=== PATIENT | male | born 1995 | race Caucasian/White ===

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

== ENCOUNTER 2017-04-09 20:33 | Emergency (ER) | payer MEDICAID ==
[2017-04-09 20:51] VITALS: BP 118/70
--- NOTE | 2017-04-09 23:39 | ER Document Report ---
HPI - HPI Patient complains to provider of: cough, congestion, sore throat Onset: Other - few days Pain Level: 4 Context: 21 yo female c/i sore throat, runny nose, congstion, cough for a few days. No fever or chills. Associated Symptoms: None Exacerbated by: Denies Relieved by: Denies - ROS ROS below otherwise negative: Yes Systems Reviewed and Negative: Yes All other systems reviewed and negative - EENT EENT: REPORTS: Sore Throat - RESPIRATORY Respiratory: REPORTS: Coughing - REPRODUCTIVE Reproductive: DENIES: : Past Medical History - General Information source: Patient - Social History Smoking Status: Current Every Day Smoker Chew tobacco use (# tins/day): No Frequency of alcohol use: None Drug Abuse: None Lives with: Family Family History: Arthritis, CAD, COPD, CVA, DM, Hyperlipidemia, Hypertension, Malignancy, Thyroid Disfunction, Other - Gallbladder Disease Patient has suicidal ideation: No Patient has homicidal ideation: No Pulmonary Medical History: Reports: Hx Asthma Renal/ Medical History: Denies: Hx Peritoneal Dialysis Psychiatric Medical History: Reports: Hx Attention Deficit Hyperactivity Disorder, Hx Bipolar Disorder Past Surgical History: Reports: Hx Genitourinary Surgery - circumcsion at 10 years old, Hx Tonsillectomy - Immunizations Immunizations up to date: Yes Hx Diphtheria, Pertussis, Tetanus Vaccination: Yes Vertical Provider Document - CONSTITUTIONAL Agree With Documented VS: Yes Exam Limitations: No Limitations General Appearance: No Apparent Distress - INFECTION CONTROL TRAVEL OUTSIDE OF THE [place] IN LAST 30 DAYS: No - HEENT HEENT: Pharyngeal Erythema. negative: Conjuctival Injection, Tympanic Membrane Red - NECK Neck: Supple. negative: Lymphadenopathy-Left, Lymphadenopathy-Right - RESPIRATORY Respiratory: Breath Sounds Normal, No Respiratory Distress O2 Sat by Pulse Oximetry: 97 - CARDIOVASCULAR Cardiovascular: Regular Rate, Regular Rhythm - GI/ABDOMEN Gastrointestinal: Abdomen Soft, Abdomen Non-Tender - NEURO Level of Consciousness: Awake, Alert, Appropriate - DERM Integumentary: Warm, Dry, No Rash Course - Vital Signs Vital signs: Temp Pulse Resp BP Pulse Ox 98.4 F 74 18 118/70 97 04/09/17 20:51 04/09/17 20:51 04/09/17 20:51 04/09/17 20:51 04/09/17 20:51 Discharge - Discharge Clinical Impression: Upper respiratory infection Qualifiers: URI type: unspecified viral URI Qualified Code(s): J06.9 - Acute upper respiratory infection, unspecified Condition: Good Disposition: HOME, SELF-CARE Instructions: Acetaminophen, Inhaled Bronchodilators ([facility]), Stop Smoking ([facility]) , Upper Respiratory Illness ([facility]) Additional Instructions: plenty of fluids quit smoking do not get around cigarette smoke use the inhaler 2 puffs every 3 hours for the cough to er if symptoms worsen, chest pain, shortness of breath, fever, chills. bodyaches Referrals: JI BUSH DO [Primary Care Provider] - Follow up as needed
[2017-04-09] MEDS ORDERED: ALBUTEROL SULFATE HFA (90 MCG/PUFF) 200 PUFF/8.5 GM MDI IH ONE (23:49)
== END 2017-04-10 00:06 | disposition home or self-care (01) ==
LOC: ER 20:33
DX: J06.9 Acute upper respiratory infection, unspecified (principal); F17.200 Nicotine dependence, unspecified, uncomplicated
CPT/HCPCS: 99283; J3490

== ENCOUNTER 2017-04-19 21:57 | Emergency (ER) | payer MEDICAID ==
--- NOTE | 2017-04-20 01:50 | ER Document Report ---
HPI - HPI Pain Level: 5 Notes: Patient is a 21-year-old male no significant past medical history presents ED complaining of nasal congestion/discharge, dry nonproductive cough, occasional dizziness, decreased appetite 13 days. Patient states that he was evaluated 10 days ago and was diagnosed with a viral infection. He did feel as though he was getting better, but symptoms began to worsen. Patient states that over the next several days his symptoms began to worsen. He has been using over-the- counter meds with minimal relief. Patient states that he still able to tolerate p.o. intake. He is urinating normally and having normal bowel movements. Denies any current headache, fever, neck pain, sore throat, chest pain, palpitations, syncope, shortness of breath, wheeze, dyspnea, abdominal pain, nausea/vomiting/diarrhea, urinary retention, dysuria, hematuria, or rash. Pt requests work note as well. - ROS Notes: REVIEW OF SYSTEMS: CONSTITUTIONAL : see hpi. EENT: see hpi CARDIOVASCULAR: Denies chest pain. Denies palpitations or racing or irregular heart beat. Denies ankle edema. RESPIRATORY: see hpi. Denies shortness of breath, difficulty breathing, or wheezing. GASTROINTESTINAL: Denies abdominal pain or distention. Denies nausea, vomiting , or diarrhea. Denies blood in vomitus, stools, or per rectum. Denies black, tarry stools. Denies constipation. GENITOURINARY: Denies difficulty urinating, painful urination, burning, frequency, blood in urine, or discharge. MUSCULOSKELETAL: Denies back or neck pain or stiffness. Denies joint pain or swelling. SKIN: Denies rash, lesions or sores. NEUROLOGICAL: Denies confusion or altered mental status. Denies passing out or loss of consciousness. Denies headache. Denies weakness or paralysis or loss of use of either side. Denies problems with gait or speech. Denies sensory loss, numbness, or tingling. Denies seizures. ALL OTHER SYSTEMS REVIEWED AND NEGATIVE. Dictation was performed using [employer] recognition software - CONSTITUTIONAL Constitutional: DENIES: Fever, Chills - EENT EENT: REPORTS: Sore Throat. DENIES: Ear Pain, Eye problems - NEURO Neurology: DENIES: Headache, Weakness, Vision blurred, Dizzinesss / Vertigo - CARDIOVASCULAR Cardiovascular: DENIES: Chest pain - RESPIRATORY Respiratory: REPORTS: Coughing - productive. DENIES: Trouble Breathing - GASTROINTESTINAL Gastrointestinal: DENIES: Abdominal Pain, Black / Bloody Stools - URINARY Urinary: DENIES: Dysuria, Urgency, Frequency - REPRODUCTIVE Reproductive: DENIES: :, Postmenopausal, Abnormal bleeding / discharge - MUSCULOSKELETAL Musculoskeletal: DENIES: Extremity pain Past Medical History - Social History Smoking Status: Current Every Day Smoker Chew tobacco use (# tins/day): No Frequency of alcohol use: None Drug Abuse: None Family History: Arthritis, CAD, COPD, CVA, DM, Hyperlipidemia, Hypertension, Malignancy, Thyroid Disfunction, Other - Gallbladder Disease Patient has suicidal ideation: No Patient has homicidal ideation: No Pulmonary Medical History: Reports: Hx Asthma Renal/ Medical History: Denies: Hx Peritoneal Dialysis Psychiatric Medical History: Reports: Hx Attention Deficit Hyperactivity Disorder, Hx Bipolar Disorder Past Surgical History: Reports: Hx Genitourinary Surgery - circumcsion at 10 years old, Hx Tonsillectomy - Immunizations Immunizations up to date: Yes Hx Diphtheria, Pertussis, Tetanus Vaccination: Yes Vertical Provider Document - CONSTITUTIONAL Agree With Documented VS: Yes Notes: PHYSICAL EXAMINATION: GENERAL: Well-appearing, well-nourished and in no acute distress. A&Ox4 HEAD: Atraumatic, normocephalic. EYES: Pupils equal round and reactive to light, extraocular movements intact, sclera anicteric, conjunctiva are normal. ENT: EAC clear b/l. TM's intact b/l without erythema, fluid, or perforation. Nares patent and without discharge. oropharynx clear without exudates. Tonsils absent. Moist mucous membranes. No sinus tenderness. No airway compromise. NECK: Normal range of motion, supple without lymphadenopathy. No rigidity/ meningismus. LUNGS: Breath sounds clear to auscultation bilaterally and equal. No wheezes rales or rhonchi. HEART: Regular rate and rhythm without murmurs, rubs, gallops. Extremities: No cyanosis, clubbing, or edema b/l. Peripheral pulses 2+. Capillary refill less than 3 seconds. NEUROLOGICAL: Cranial nerves grossly intact. Normal speech, normal gait. Normal sensory, motor exams PSYCH: Normal mood, normal affect. SKIN: Warm, Dry, normal turgor, no rashes or lesions noted. - INFECTION CONTROL TRAVEL OUTSIDE OF THE [place] IN LAST 30 DAYS: No - RESPIRATORY O2 Sat by Pulse Oximetry: 97 Course - Re-evaluation Re-evalutation: 04/20/17 01:49 Patient is an afebrile, well-hydrated, 21-year-old male who presents the ED with acute URI, suspect viral at this time. Vitals are stable. PE is otherwise unremarkable. No other imaging or lab work warranted at this time based on H&P. Low suspicion for any ACS, PE, pneumothorax, pericarditis, dissection, respiratory compromise, severe dehydration, sepsis, meningitis, or other systemic emergent condition at this time. Patient is aware that his condition can change from initial presentation and he needs to monitor symptoms closely and seek medical attention for any acute changes. I will send him home with a prescription for a pocket prescription of Zithromax that he may begin if ongoing symptoms or worsening symptoms 2-3 days. Recommend conservative measures for symptoms. Recheck with your PCM in 3-5 days. Return to the ED with any worsening/concerning symptoms otherwise as reviewed in discharge. Patient is in agreement. - Vital Signs Vital signs: Temp Pulse Resp BP Pulse Ox 99.1 F 84 16 127/75 H 97 04/19/17 22:02 04/19/17 22:02 04/19/17 22:02 04/19/17 22:02 04/19/17 22:02 Discharge - Discharge Clinical Impression: Acute URI Condition: Stable Disposition: HOME, SELF-CARE Instructions: Upper Respiratory Illness ([facility]) Additional Instructions: Maintain adequate fluid intake Take meds as directed--may begin zithromax with ongoing/worsening symptoms x2-3 days tylenol/ibuprofen as needed over the counter cold medication as needed for symptoms Humidified air may help F/u: with your PCM in 3-5 days for a recheck Return to the ED with any fever, worsening pain, chest pain, palpitations, syncope, worsening HERNANDEZ, neck pain/stiffness, shortness of breath, wheezing, drooling, trouble swallowing/breathing, abdominal pain, n/v/d, rash, or worsening/concerning symptoms otherwise. Prescriptions: Azithromycin [Zithromax 250 mg Tablet] 250 mg PO ASDIR PRN #6 tablet PRN Reason: Forms: Elevated Blood Pressure, Smoking Cessation Education, Return to Work Referrals: [facility] [Provider Group] - Follow up as needed [facility] [Provider Group] - Follow up as needed
[2017-04-20 02:35] VITALS: BP 127/75
== END 2017-04-20 02:33 | disposition home or self-care (01) ==
LOC: ER 21:57
DX: J06.9 Acute upper respiratory infection, unspecified (principal); R09.81 Nasal congestion; R42 Dizziness and giddiness; F17.200 Nicotine dependence, unspecified, uncomplicated
CPT/HCPCS: 99283

== ENCOUNTER 2017-04-20 18:46 | Emergency (ER) | payer MEDICAID ==
[2017-04-20] MEDS ORDERED: ACETAMINOPHEN 325 MG TABLET PO ONE (19:14)
--- NOTE | 2017-04-20 19:33 | ER Document Report ---
ED Medical Screen (RME) - General Chief Complaint: Pain All Over Stated Complaint: FEVERS/COUGH Time Seen by Provider: 04/20/17 19:29 Notes: seen last night for same. Given antibiotics, did not start them yet. Pt has been sick for two weeks, symptoms worse today. States has been hospitalized as child when he had bronchitis due to asthma. 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 I have greeted and performed a rapid initial assessment of this patient. A comprehensive ED assessment and evaluation of the patient, analysis of test results and completion of the medical decision making process will be conducted by additional ED providers. TRAVEL OUTSIDE OF THE [place] IN LAST 30 DAYS: No - Related Data Allergies/Adverse Reactions: promethazine HCl [From Phenergan] Allergy (Verified 04/20/17 18:51) Past Medical History Pulmonary Medical History: Reports: Hx Asthma Renal/ Medical History: Denies: Hx Peritoneal Dialysis Psychiatric Medical History: Reports: Hx Attention Deficit Hyperactivity Disorder, Hx Bipolar Disorder Past Surgical History: Reports: Hx Genitourinary Surgery - circumcsion at 10 years old, Hx Tonsillectomy - Immunizations Immunizations up to date: Yes Hx Diphtheria, Pertussis, Tetanus Vaccination: Yes Physical Exam - Vital signs Vitals: Temp Pulse Resp BP Pulse Ox 102.9 F H 132 H 18 120/66 99 04/20/17 19:11 04/20/17 19:11 04/20/17 19:11 04/20/17 19:11 04/20/17 19:11 Course - Vital Signs Vital signs: Temp Pulse Resp BP Pulse Ox 102.9 F H 132 H 18 120/66 99 04/20/17 19:11 04/20/17 19:11 04/20/17 19:11 04/20/17 19:11 04/20/17 19:11
--- NOTE | 2017-04-20 19:53 | RADIOLOGY REPORT (SQ) ---
EXAM DESCRIPTION: CHEST PA/LAT COMPLETED DATE/TIME: 04/20/2017 7:39 pm REASON FOR STUDY: chest congestion/fever COMPARISON: None. NUMBER OF VIEWS: Two view. TECHNIQUE: Frontal and lateral radiographic images acquired of the chest. LIMITATIONS: None. FINDINGS: LUNGS: Clear. Normal inflation. Pulmonary vascularity normal. No radiopaque foreign bod y. HEART AND MEDIASTINUM: Normal size, no mass or congenital abnormality suggested. BONES: No fracture, lesion or congenital abnormality suggested. BOWEL GAS PATTERN: Nonobstructive. No suggestion of upper abdominal mass. HARDWARE: None in the chest. OTHER: No other significant finding. IMPRESSION: NORMAL TWO VIEW PEDIATRIC CHEST EXAMINATION. TECHNICAL DOCUMENTATION: JOB ID: [id number] [employer]- All Rights Reserved
[2017-04-20] MEDS ORDERED: NORMAL SALINE 1000 ML 1,000 ML IV ONE (21:51)
[2017-04-20 22:24] LABS: ABSOLUTE LYMPHOCYTES (AUTO) 1.2 10^3/uL (0.5-4.7); ABSOLUTE NEUT (AUTO) 15.8 10^3/uL (1.7-8.2); BASOPHILS % (AUTO) 0.1 % (0-2); EOSINOPHILS % (AUTO) 0.2 % (0-6); HEMATOCRIT 41.1 % (37.9-51.0); HEMOGLOBIN 14.3 g/dL (13.5-17.0); HGB HCT DIFFERENCE 1.8; LYMPHOCYTES % (AUTO) 6.5 % (13-45); MEAN CORPUSCULAR HEMOGLOBIN 29.1 pg (27.0-33.4); MEAN CORPUSCULAR HGB CONC 34.8 g/dL (32.0-36.0); MEAN CORPUSCULAR VOLUME 84 fl (80-97); MONOCYTES % (AUTO) 5.6 % (3-13); RED BLOOD COUNT 4.91 10^6/uL (4.35-5.55); RED CELL DISTRIBUTION WIDTH 12.8 % (11.5-14.0); SEGMENTED NEUTROPHILS % (AUTO) 87.6 % (42-78); WHITE BLOOD COUNT 18.1 10^3/uL (4.0-10.5)
[2017-04-20 22:27] LABS: APPEARANCE,URINE CLEAR; BILIRUBIN,URINE NEGATIVE (NEGATIVE); GLUCOSE, URINE NEGATIVE (NEGATIVE); KETONES,URINE NEGATIVE (NEGATIVE); LEUKOCYTE ESTERASE,URINE NEGATIVE (NEGATIVE); NITRITE,URINE NEGATIVE (NEGATIVE); PROTEIN,URINE NEGATIVE (NEGATIVE); URINE SPECIFIC GRAVITY 1.004; UROBILINOGEN,URINE NEGATIVE mg/dL (<2.0)
[2017-04-20 22:57] LABS: ALANINE AMINOTRANSFERASE 32 U/L (10-40); ALBUMIN 3.8 g/dL (3.7-5.6); ALKALINE PHOSPHATASE 86 U/L (65-260); ASPARTATE AMINO TRANSFERASE 20 U/L (10-45); BILIRUBIN,DIRECT 0.4 mg/dL (0.0-0.4); BILIRUBIN,TOTAL 0.7 mg/dL (0.2-1.3); BLOOD UREA NITROGEN 7 mg/dL (7-20); CALCIUM 9.5 mg/dL (8.4-10.2); CARBON DIOXIDE 25 mmol/L (22-30); CHLORIDE 104 mmol/L (98-107); CREATININE RESULT 0.78 mg/dL (0.52-1.25); GLUCOSE 120 mg/dL (75-110); POTASSIUM 3.5 mmol/L (3.6-5.0); TOTAL PROTEIN 6.3 g/dL (6.3-8.2)
[2017-04-20 23:04] LABS: ANION GAP 11 (5-19); SODIUM 139.8 mmol/L (137-145)
[2017-04-20] MEDS ORDERED: CEFTRIAXONE 1 GM/D5W RTU 1 GM/50 ML RTUPB IV ONE (23:29)
[2017-04-20] MEDS ORDERED: DEXAMETHASONE SOD PHOS INJ 10 MG/1 ML VIAL IV ONE (23:29)
[2017-04-21] MEDS ORDERED: ACETAMINOPHEN WITH CODEINE #3 TABLET PO ONE (00:05)
--- NOTE | 2017-04-21 00:20 | ER Document Report ---
ED General - General Chief Complaint: Pain All Over Stated Complaint: FEVERS/COUGH Time Seen by Provider: 04/20/17 19:29 Mode of Arrival: Ambulatory Information source: Patient, Friend Notes: Patient is a 21-year-old male comes back to the emergency room from a visit last night. Patient states he was here last night and was told he probably had bronchitis and was sent home. He was given an antibiotic but he did not get itfilled. Patient states that at home today he has been unable to keep any food and he is run temps up to 100 and 3.5I is try taking Tylenol and ibuprofen but the fever has not gotten any better. He is also complained about a continuous cough and drainage in his throat. Patient's vital signs on arrival here showed a temp of 102.9 with a heart rate 132 blood pressure 120/66 and respiratory rate 18 sat 99%. Patient denies any other medical problems. He does smoke a half pack cigarettes a day. TRAVEL OUTSIDE OF THE [place] IN LAST 30 DAYS: No - HPI Patient complains to provider of: Fever cough fatigue Onset: Other - 3 days Onset/Duration: Gradual, Worse Quality of pain: Achy Severity: Moderate Pain Level: 3 Associated symptoms: Body/muscle aches, Nonproductive cough, Fever, Nausea, Rhinnorhea, Sinus pain/drainage, Sore throat Exacerbated by: Denies Relieved by: Denies Similar symptoms previously: Yes Recently seen / treated by doctor: Yes - Related Data Allergies/Adverse Reactions: promethazine HCl [From Phenergan] Allergy (Verified 04/20/17 18:51) Past Medical History - General Information source: Patient, Friend - Social History Smoking Status: Current Every Day Smoker Cigarette use (# per day): Yes - Half a pack to pack a day Chew tobacco use (# tins/day): No Smoking Education Provided: Yes Frequency of alcohol use: None Drug Abuse: None Lives with: Family Family History: Arthritis, CAD, COPD, CVA, DM, Hyperlipidemia, Hypertension, Malignancy, Thyroid Disfunction, Other - Gallbladder Disease Patient has suicidal ideation: No Patient has homicidal ideation: No Pulmonary Medical History: Reports: Hx Asthma Renal/ Medical History: Denies: Hx Peritoneal Dialysis Psychiatric Medical History: Reports: Hx Attention Deficit Hyperactivity Disorder, Hx Bipolar Disorder Past Surgical History: Reports: Hx Genitourinary Surgery - circumcsion at 10 years old, Hx Tonsillectomy - Immunizations Immunizations up to date: Yes Hx Diphtheria, Pertussis, Tetanus Vaccination: Yes Review of Systems - Review of Systems Constitutional: No symptoms reported EENT: Nose congestion, Sinus pressure, Throat pain, Difficulty swallowing Cardiovascular: No symptoms reported Respiratory: See HPI, Cough, Short of breath Gastrointestinal: No symptoms reported Genitourinary: No symptoms reported Male Genitourinary: No symptoms reported Musculoskeletal: Muscle pain Skin: No symptoms reported Hematologic/Lymphatic: No symptoms reported Neurological/Psychological: No symptoms reported -: Yes All other systems reviewed and negative Physical Exam - Vital signs Vitals: Temp Pulse Resp BP Pulse Ox 102.9 F H 132 H 18 120/66 99 04/20/17 19:11 04/20/17 19:11 04/20/17 19:11 04/20/17 19:11 04/20/17 19:11 Interpretation: Tachycardic, Febrile - General General appearance: Other - Slightly ill-appearing - HEENT Head: Normocephalic, Atraumatic Conjunctiva: Normal Cornea: Normal Extraocular movements intact: Yes External canal: Normal Tympanic membrane: Bulging Nasal: Purulent discharge Mouth/Lips: Normal Mucous membranes: Normal, Moist Pharynx: Erythema, Other - Examination had an upper airway showed nasal mucosa to be very erythematous and edematous with rhinorrhea noted throughout. Bilateral nasal congestion is also noted. Examination of the frontal maxillary sinuses show tenderness to palpation percussion. Examination of the ears show external canals have a mild amount of cerumen but TMs are visible and there are no fluid levels noted although TMs are bulging bilaterally. Examination of the oropharynx shows moderate amount of edema throughout there are no tonsils visualized. There is moderate amount of drainage in the posterior pharynx. Neck: Anterior cervical chain, Lymphadenopathy - Respiratory Respiratory status: No respiratory distress Chest status: Nontender Breath sounds: Decreased air movement, Nonproductive cough. No: Normal, Productive cough, Rales, Rhonchi, Stridor, Wheezing, Other Chest palpation: Normal - Cardiovascular Rhythm: Tachycardia Murmur: No - Abdominal Inspection: Normal Distension: No distension Bowel sounds: Normal Tenderness: Nontender Organomegaly: No organomegaly - Neurological Neuro grossly intact: Yes Cognition: Normal Orientation: AAOx4 [place] Coma Scale Eye Opening: Spontaneous [place] Coma Scale Verbal: Oriented Maria Elena Coma Scale Motor: Obeys Commands Maria Elena Coma Scale Total: 15 Speech: Normal - Skin Skin Temperature: Warm Skin Moisture: Dry Skin Color: Normal, [place] Course - Vital Signs Vital signs: Temp Pulse Resp BP Pulse Ox 97.7 F 91 H 18 117/60 98 04/21/17 00:47 04/21/17 00:47 04/21/17 00:47 04/21/17 00:47 04/21/17 00:47 - Laboratory Result Diagrams: 04/20/17 22:10 04/20/17 22:10 Laboratory results interpreted by me: 04/20/17 04/20/17 22:10 22:10 WBC 18.1 H Seg Neutrophils % 87.6 H Lymphocytes % 6.5 L Absolute Neutrophils 15.8 H Potassium 3.5 L Glucose 120 H - Diagnostic Test Radiology reviewed: Reports reviewed - Plain film of the chest were negative for any acute findings. - Transfer of Care Notes: 04/21/17 00:24 Patient's course of stay has actually showed major improvement over the course of time. He is received a liter of fluids he is gotten to eat and his kept food down as well as other dietary josey. Eyes actually got better color in his face. His workup has been pretty much benign with the exception we have an 18,000 white count that I cannot explain and a fever that was up to 102.9. Since patient is been here on ibuprofen Tylenol and fluids he has had a more normalized vital signs. I have since I know of the patient's course of action here I have informed him that if he does not get a lot better in 24 hours or he has a relapse to come back between 2:00 in the afternoon 2:00 in the morning tomorrow as I know his case and ask for me. 04/21/17 00:59 Discharge - Discharge Clinical Impression: Fever, unknown origin, Bacterial upper respiratory infection Condition: Good Disposition: HOME, SELF-CARE Instructions: Acetaminophen, Upper Respiratory Illness ([facility]) Additional Instructions: Home and rest. Medication as prescribed. As we discussed return to ER tomorrow after 2 at the afternoon if you are not 100% better or improving. 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 If you are improving then continue with the medications and follow-up with your primary care provider. Return sooner if you have any concerns or problems. Continue with hydration primarily and decrease smoking as much as possible. Prescriptions: Acetaminophen with Codeine [Tylenol #3 Tablet] 1 each PO Q4HP PRN #20 tablet PRN Reason: Azithromycin [Zithromax Tri-Woody] 500 mg PO DAILY #1 pkg Prednisone [Sterapred Ds] 10 mg PO ASDIR PRN #1 tab.ds.pk PRN Reason: Prednisone 10 mg PO ASDIR PRN #1 tab.ds.pk PRN Reason: Forms: Return to Work, Smoking Cessation Education, Parent Work Note
[2017-04-21 00:48] VITALS: BP 117/60
== END 2017-04-21 01:10 | disposition home or self-care (01) ==
LOC: ER 18:46
DX: J06.9 Acute upper respiratory infection, unspecified (principal); M79.1 Myalgia; R50.9 Fever, unspecified; F17.210 Nicotine dependence, cigarettes, uncomplicated
CPT/HCPCS: 99283; 96361; 96375; 96365; 36415; 87040; 87070; 87880; 85025; 80053; 81001; 87804; 71020; J3490; J7030; J0696; J1100

== ENCOUNTER 2017-09-16 17:30 | Emergency (ER) | payer SELFPAY ==
[2017-09-16 17:45] VITALS: BP 117/76
[2017-09-16] MEDS ORDERED: IBUPROFEN 800 MG TABLET PO ONE (18:24)
--- NOTE | 2017-09-16 18:27 | ER Document Report ---
HPI - HPI Patient complains to provider of: Back pain Onset: Other - 3 days Onset/Duration: Persistent Quality of pain: Achy Pain Level: 4 Context: Patient states he started a job recently and has been doing a lot of picking up and lifting movements. Patient states he has a history of scoliosis and feels that his job has caused him to develop back tenderness. Patient denies any specific injury. Patient states that he is on his feet for 10 hours a day. Patient denies any fever or urinary problems. Patient denies any radiculopathy or paresthesia. Associated Symptoms: Other - Back pain. denies: Fever, Headache Exacerbated by: Movement Relieved by: Denies Similar symptoms previously: Yes Recently seen / treated by doctor: No - ROS ROS below otherwise negative: Yes Systems Reviewed and Negative: Yes All other systems reviewed and negative - CONSTITUTIONAL Constitutional: DENIES: Fever - NEURO Neurology: DENIES: Headache, Weakness - GASTROINTESTINAL Gastrointestinal: DENIES: Abdominal Pain, Nausea - REPRODUCTIVE Reproductive: DENIES: : - MUSCULOSKELETAL Musculoskeletal: REPORTS: Back Pain - DERM Skin Color: Normal Skin Problems: None Past Medical History - General Information source: Patient - Social History Smoking Status: Current Every Day Smoker Chew tobacco use (# tins/day): No Smoking Education Provided: Yes Frequency of alcohol use: None Drug Abuse: None Occupation: [employer] Family History: Arthritis, CAD, COPD, CVA, DM, Hyperlipidemia, Hypertension, Malignancy, Thyroid Disfunction, Other - Gallbladder Disease Patient has suicidal ideation: No Patient has homicidal ideation: No Pulmonary Medical History: Reports: Hx Asthma Renal/ Medical History: Denies: Hx Peritoneal Dialysis Musculoskeltal Medical History: Reports Other - Scoliosis Psychiatric Medical History: Reports: Hx Attention Deficit Hyperactivity Disorder, Hx Bipolar Disorder Past Surgical History: Reports: Hx Genitourinary Surgery - circumcsion at 10 years old, Hx Tonsillectomy - Immunizations Immunizations up to date: Yes Hx Diphtheria, Pertussis, Tetanus Vaccination: Yes Vertical Provider Document - CONSTITUTIONAL Agree With Documented VS: Yes Exam Limitations: No Limitations General Appearance: WD/WN, No Apparent Distress - INFECTION CONTROL TRAVEL OUTSIDE OF THE [place] IN LAST 30 DAYS: No - HEENT HEENT: Atraumatic, Normocephalic - NECK Neck: Normal Inspection, Supple. negative: Lymphadenopathy-Left, Lymphadenopathy-Right - RESPIRATORY Respiratory: Breath Sounds Normal, No Respiratory Distress - CARDIOVASCULAR Cardiovascular: Regular Rate, Regular Rhythm - BACK Back: Abnormal Inspection - Patient with lower thoracic tenderness and paraspinal tenderness, no deformity or step-off. negative: CVA Tenderness-Right , CVA Tenderness-Left - MUSCULOSKELETAL/EXTREMETIES Musculoskeletal/Extremeties: MARY FROM - NEURO Level of Consciousness: Awake, Alert, Appropriate Motor/Sensory: No Motor Deficit - DERM Integumentary: Warm, Dry, No Rash Course - Re-evaluation Re-evalutation: 09/16/17 18:25 The patient presents with low back pain without signs of spinal cord compression , cauda equina syndrome, infection, aneurysm, or other serious etiology. The patient is neurologically intact. Given the extremely risk of these diagnoses further testing and evaluation for these possibilities does not appear to be indicated at this time. Patient has been instructed to return if the symptoms worsen or change in any way. - Vital Signs Vital signs: Temp Pulse Resp BP Pulse Ox 98.9 F 80 16 117/76 98 09/16/17 17:43 09/16/17 17:43 09/16/17 17:43 09/16/17 17:43 09/16/17 17:43 Discharge - Discharge Clinical Impression: Back strain Qualifiers: Encounter type: initial encounter Qualified Code(s): S39.012A - Strain of muscle, fascia and tendon of lower back, initial encounter Condition: Stable Disposition: HOME, SELF-CARE Instructions: Low Back Pain ([facility]), Muscle Relaxers ([facility]) Additional Instructions: Return immediately for any new or worsening symptoms Followup with your primary care provider, call tomorrow to make a followup appointment Prescriptions: Cyclobenzaprine HCl [Flexeril 10 Mg Tablet] 10 mg PO TID #15 tablet Naproxen [Naprosyn 250 Nmg Tablet] 1 tab PO BID #14 tablet Forms: Smoking Cessation Education, Return to Work Referrals: JI BUSH DO [NO LOCAL MD] - Follow up tomorrow
== END 2017-09-16 18:28 | disposition home or self-care (01) ==
LOC: ER 17:30
DX: S39.012A Strain of muscle, fascia and tendon of lower back, initial encounter (principal); F17.200 Nicotine dependence, unspecified, uncomplicated; X50.3XXA Overexertion from repetitive movements, initial encounter; Y99.0 Civilian activity done for income or pay
CPT/HCPCS: 99283

== ENCOUNTER 2017-09-30 14:08 | Emergency (ER) | payer SELFPAY ==
[2017-09-30] MEDS ORDERED: CYCLOBENZAPRINE HCL 10 MG TABLET PO ONE (15:39)
[2017-09-30] MEDS ORDERED: IBUPROFEN 800 MG TABLET PO ONE (15:39)
--- NOTE | 2017-09-30 15:40 | ER Document Report ---
HPI - HPI Patient complains to provider of: Rib pain Onset: Other - 3 days Onset/Duration: Persistent Quality of pain: Achy Pain Level: 3 Context: Patient complains of lower rib tenderness that is worse with movement and coughing. Patient states he has had a cough for the past 2 weeks. Patient denies any fever. Patient denies any recent bed rest, travel or immobilization. Associated Symptoms: Nonproductive cough. denies: Chest pain, Fever, Vomiting, Shortness of breath Exacerbated by: Movement, Coughing Relieved by: Denies Similar symptoms previously: No Recently seen / treated by doctor: Yes - ROS ROS below otherwise negative: Yes Systems Reviewed and Negative: Yes All other systems reviewed and negative - CONSTITUTIONAL Constitutional: DENIES: Fever, Chills - CARDIOVASCULAR Cardiovascular: DENIES: Chest pain - RESPIRATORY Respiratory: REPORTS: Coughing. DENIES: Trouble Breathing - GASTROINTESTINAL Gastrointestinal: DENIES: Abdominal Pain, Nausea - REPRODUCTIVE Reproductive: DENIES: : - MUSCULOSKELETAL Musculoskeletal: DENIES: Back Pain - DERM Skin Color: Normal Skin Problems: None Past Medical History - General Information source: Patient - Social History Smoking Status: Current Every Day Smoker Smoking Education Provided: Yes Frequency of alcohol use: None Drug Abuse: None Occupation: [employer] Lives with: Spouse/Significant other Family History: Arthritis, CAD, COPD, CVA, DM, Hyperlipidemia, Hypertension, Malignancy, Thyroid Disfunction, Other - Gallbladder Disease Patient has suicidal ideation: No Patient has homicidal ideation: No Pulmonary Medical History: Reports: Hx Asthma Renal/ Medical History: Denies: Hx Peritoneal Dialysis Psychiatric Medical History: Reports: Hx Attention Deficit Hyperactivity Disorder, Hx Bipolar Disorder Past Surgical History: Reports: Hx Genitourinary Surgery - circumcsion at 10 years old, Hx Tonsillectomy - Immunizations Immunizations up to date: Yes Hx Diphtheria, Pertussis, Tetanus Vaccination: Yes Vertical Provider Document - CONSTITUTIONAL Agree With Documented VS: Yes Exam Limitations: No Limitations General Appearance: WD/WN, No Apparent Distress - INFECTION CONTROL TRAVEL OUTSIDE OF THE [place] IN LAST 30 DAYS: No - HEENT HEENT: Atraumatic, Normocephalic - NECK Neck: Normal Inspection, Supple - RESPIRATORY Respiratory: Breath Sounds Normal, No Respiratory Distress. negative: Chest Non -Tender - Lower costal tenderness - CARDIOVASCULAR Cardiovascular: Regular Rate, Regular Rhythm, No Murmur - GI/ABDOMEN Gastrointestinal: Abdomen Soft, Abdomen Non-Tender, No Organomegaly, Normal Bowel Sounds - BACK Back: Normal Inspection. negative: CVA Tenderness-Right, CVA Tenderness-Left - MUSCULOSKELETAL/EXTREMETIES Musculoskeletal/Extremeties: MARY, ALVIN - NEURO Level of Consciousness: Awake, Alert, Appropriate Motor/Sensory: No Motor Deficit - DERM Integumentary: Warm, Dry, No Rash Course - Vital Signs Vital signs: Temp Pulse Resp BP Pulse Ox 97.8 F 71 18 133/75 H 97 09/30/17 14:16 09/30/17 14:16 09/30/17 14:16 09/30/17 14:16 09/30/17 14:16 - Diagnostic Test Radiology reviewed: Reports reviewed Discharge - Discharge Clinical Impression: Chest wall pain Upper respiratory infection Qualifiers: URI type: unspecified URI Qualified Code(s): J06.9 - Acute upper respiratory infection, unspecified Condition: Stable Disposition: HOME, SELF-CARE Instructions: Anti-Inflammatory Medication ([facility]), Chest Wall Pain ([facility]), Upper Respiratory Illness ([facility]) Additional Instructions: Return immediately for any new or worsening symptoms Followup with your primary care provider, call tomorrow to make a followup appointment Prescriptions: Benzonatate [Tessalon Perle 100 mg Capsule] 100 mg PO Q8HP PRN #20 cap PRN Reason: Naproxen [Naprosyn 250 Nmg Tablet] 1 tab PO BID #14 tablet Forms: Smoking Cessation Education, Return to School, Return to Work Referrals: JI BUSH DO [NO LOCAL MD] - Follow up tomorrow
--- NOTE | 2017-09-30 16:30 | RADIOLOGY REPORT (SQ) ---
EXAM DESCRIPTION: CHEST 2 VIEWS COMPLETED DATE/TIME: 09/30/2017 4:19 pm REASON FOR STUDY: cough, rib pain COMPARISON: Two-view chest 04/20/2017 EXAM PARAMETERS: NUMBER OF VIEWS: two views TECHNIQUE: Digital Frontal and Lateral radiographic views of the chest acquired. RADIATION DOSE: NA LIMITATIONS: none FINDINGS: LUNGS AND PLEURA: No opacities, masses or pneumothorax. No pleural effusion. MEDIASTINUM AND HILAR STRUCTURES: No masses or contour abnormalities. HEART AND VASCULAR STRUCTURES: Heart normal size. No evidence for failure. BONES: No acute findings. HARDWARE: None in the chest. OTHER: No other significant finding. IMPRESSION: NO ACUTE RADIOGRAPHIC FINDING IN THE CHEST. TECHNICAL DOCUMENTATION: JOB ID: [id number] [employer]- All Rights Reserved Reading location - IP/workstation name: [email or web address]
[2017-09-30 17:11] VITALS: BP 133/72
== END 2017-09-30 17:16 | disposition home or self-care (01) ==
LOC: ER 14:08
DX: R07.89 Other chest pain (principal); R05 Cough; F17.200 Nicotine dependence, unspecified, uncomplicated; J45.909 Unspecified asthma, uncomplicated
CPT/HCPCS: 71046; 99283

== ENCOUNTER 2017-10-05 00:22 | Emergency (ER) | payer SELFPAY ==
[2017-10-05] MEDS ORDERED: DEXAMETHASONE SOD PHOS INJ 10 MG/1 ML VIAL IM ONE (02:01)
--- NOTE | 2017-10-05 02:05 | ER Document Report ---
HPI - HPI Patient complains to provider of: cough, rib pain Pain Level: 4 Context: Patient is a 21-year-old male comes emergency department for chief complaint of cough for the past 3 weeks, he states for the past several days he has had rib pain, he states he was seen and had an x-ray and prescribed Tessalon but he has not filled it yet. He states that he had a coughing episode earlier today that was much worse and he thinks he coughed up just a little bit of blood. He denies fever chills, night sweats, weight loss, difficulty breathing, he denies any current symptoms. He smokes, has a history of seasonal allergies, is already treated for these. He denies any other daily medications or history. - REPRODUCTIVE Reproductive: DENIES: : Past Medical History - General Information source: Patient - Social History Smoking Status: Current Every Day Smoker Smoking Education Provided: Yes - <3 min Frequency of alcohol use: None Drug Abuse: None Lives with: Family Family History: Arthritis, CAD, COPD, CVA, DM, Hyperlipidemia, Hypertension, Malignancy, Thyroid Disfunction, Other - Gallbladder Disease Pulmonary Medical History: Reports: Hx Asthma Renal/ Medical History: Denies: Hx Peritoneal Dialysis Psychiatric Medical History: Reports: Hx Attention Deficit Hyperactivity Disorder, Hx Bipolar Disorder Past Surgical History: Reports: Hx Genitourinary Surgery - circumcsion at 10 years old, Hx Tonsillectomy - Immunizations Immunizations up to date: Yes Hx Diphtheria, Pertussis, Tetanus Vaccination: Yes Vertical Provider Document - CONSTITUTIONAL General Appearance: WD/WN, No Apparent Distress - INFECTION CONTROL TRAVEL OUTSIDE OF THE [place] IN LAST 30 DAYS: No - HEENT HEENT: Atraumatic, Normocephalic - NECK Neck: Normal Inspection - RESPIRATORY Respiratory: Breath Sounds Normal, No Respiratory Distress. negative: Chest Non -Tender - There is reproducible tenderness over the lower ribs on both sides of the anterior chest. No crepitus, erythema, ecchymosis, or other abnormality noted - CARDIOVASCULAR Cardiovascular: Regular Rate, Regular Rhythm - GI/ABDOMEN Gastrointestinal: Abdomen Soft, Abdomen Non-Tender - BACK Back: Normal Inspection - MUSCULOSKELETAL/EXTREMETIES Musculoskeletal/Extremeties: MAEW, FROM, Non-Tender - NEURO Level of Consciousness: Awake, Alert, Appropriate - DERM Integumentary: Warm, Dry, No Rash Course - Re-evaluation Re-evalutation: Patient is chest wall tenderness on exam. Unremarkable vital signs including no tachycardia, tachypnea, or hypoxia. He is very well-appearing on exam. No respiratory abnormalities noted on my exam. He just had a chest x-ray a few days ago which was normal. He does not have any suggestive symptoms indicating perforation, pneumonia, tuberculosis. I did discuss possibility of repeating a chest x-ray but patient declined. He states he just wants something for his chest. He still has not filled his prescriptions, states he is bad about taking pills. Agreed to give him a dose of steroids here for his chest and cough via IM route. Provide with work release. Discussed follow-up and return precautions. Discussed smoking cessation. Patient states understanding and agreement. Discharge - Discharge Clinical Impression: Cough, Rib pain Condition: Stable Disposition: HOME, SELF-CARE Additional Instructions: You have been treated with dexamethasone tonight. This should help with your cough and rib pain symptoms. I recommend he also take the naproxen and Tessalon that you were prescribed. Continue allergy medications. Stop smoking. Follow-up with primary care. Drink plenty fluids and rest. Return if you worsen including spiking fever, difficulty breathing, vomiting, or any other concerning or worsening symptoms. Forms: Return to Work
== END 2017-10-05 02:48 | disposition home or self-care (01) ==
LOC: ER 00:22
DX: R04.2 Hemoptysis (principal); T48.3X Poisoning by, adverse effect of and underdosing of antitussives; Z91.128 Patient's intentional underdosing of medication regimen for other reason; Z91.14 Patient's other noncompliance with medication regimen; R07.81 Pleurodynia; F17.200 Nicotine dependence, unspecified, uncomplicated; J45.909 Unspecified asthma, uncomplicated
CPT/HCPCS: 99283; 96372; J1100

== ENCOUNTER 2018-04-03 20:14 | Emergency (ER) | payer SELFPAY ==
[2018-04-03 20:20] VITALS: BP 129/73
[2018-04-03] MEDS ORDERED: DIAZEPAM INJ 10 MG/2 ML DISP.SYRIN IM ONE (21:08)
--- NOTE | 2018-04-03 21:14 | ER Document Report ---
Addendum entered and electronically signed by SAPNA NASSAR PA 05/05/18 06:32: Discharge - Discharge Clinical Impression: Lower back pain Qualifiers: Chronicity: acute Back pain laterality: bilateral Sciatica presence: without sciatica Qualified Code(s): M54.5 - Low back pain Condition: Stable Disposition: HOME, SELF-CARE Additional Instructions: Your evaluation is most consistent with muscle strain and spasm. You have been given initial treatment, continue treatment at home with prescribed medications, apply heat to the area, do gentle stretches, and rest. Avoid heavy lifting/twisting until symptoms resolve. Follow-up with primary care. Return for any concerning symptoms including developing numbness, severe pain, fever, incontinence, or any other concerning symptoms. Prescriptions: Methocarbamol [Robaxin 750 mg Tablet] 750 mg PO Q6 #20 tablet Naproxen 500 mg PO BID PRN #20 tablet PRN Reason: Forms: Return to Work Original Note: HPI - HPI Time Seen by Provider: 04/03/18 20:58 Pain Level: 5 Context: Patient is a 22 year old male that comes emergency department for chief complaint of pain in his mid to lower back. He states he has chronic back pain, he was diagnosed with scoliosis, he spends a lot of time on his feet at work, he states over the past couple of days he has had more pain after work which resolves with sleeping but tonight he was too uncomfortable and came here for evaluation. He denies a specific injury but he does perform a lot of lifting and twisting at work. He denies any numbness, incontinence, fever, history of IV drug abuse. He states intermittently has been placed on muscle relaxers and similar medication with good effect. He denies any daily prescribed medications, he denies any other complaints, he denies any other medical history. - REPRODUCTIVE Reproductive: DENIES: : Past Medical History - General Information source: Patient - Social History Smoking Status: Never Smoker Frequency of alcohol use: None Drug Abuse: None Lives with: Family Family History: Arthritis, CAD, COPD, CVA, DM, Hyperlipidemia, Hypertension, Malignancy, Thyroid Disfunction, Other - Gallbladder Disease Pulmonary Medical History: Reports: Hx Asthma Renal/ Medical History: Denies: Hx Peritoneal Dialysis Psychiatric Medical History: Reports: Hx Attention Deficit Hyperactivity Disorder, Hx Bipolar Disorder Past Surgical History: Reports: Hx Genitourinary Surgery - circumcsion at 10 years old, Hx Tonsillectomy - Immunizations Immunizations up to date: Yes Hx Diphtheria, Pertussis, Tetanus Vaccination: Yes Vertical Provider Document - CONSTITUTIONAL General Appearance: WD/WN, No Apparent Distress - Patient's eyes are red, appears to recently have been tearful - INFECTION CONTROL TRAVEL OUTSIDE OF THE [place] IN LAST 30 DAYS: No - HEENT HEENT: Atraumatic, Normocephalic - NECK Neck: Normal Inspection - RESPIRATORY Respiratory: Breath Sounds Normal, No Respiratory Distress - CARDIOVASCULAR Cardiovascular: Regular Rate, Regular Rhythm - GI/ABDOMEN Gastrointestinal: Abdomen Soft, Abdomen Non-Tender - BACK Back: negative: Normal Inspection - Tenderness along the lower thoracic and lumbar paraspinal musculature, no signs of trauma, no erythema. No midline tenderness, no saddle anesthesia, no signs of trauma. Normal upper and lower extremity range of motion, normal strength, normal distal neurovascular exam. - MUSCULOSKELETAL/EXTREMETIES Musculoskeletal/Extremeties: MAEW, FROM, Non-Tender - NEURO Level of Consciousness: Awake, Alert, Appropriate - DERM Integumentary: Warm, Dry, No Rash Course - Re-evaluation Re-evalutation: Nurse reported to me that patient had expressed when he arrived he became very upset and anxious, he stated that this was because his mother in this hospital recently and he was having flashbacks. Patient was tachycardic on initial evaluation in triage, but not on my evaluation. On my evaluation he is composed, calm, he states he feels improved. He is complaining of pain in his back, he does have bilateral paraspinal tenderness along the lower thoracic and lumbar areas, he relates this to his work, he states that he has this frequently, he denies that this is different than his usual flareup. He states he has already had imaging and declines further workup, states he is simply here for treatment. Patient denies fever, he does not have track ortez, he denies street drugs or history of IV drug abuse, and at this point he does not have saddle anesthesia, numbness, incontinence, and he is alert and well-appearing. Normal distal neurovascular exam he ambulates without difficulty. Low suspicion of spinal cord compression, epidural abscess, dissection. Discussed with patient, given a dose of diazepam here, sending home on anti-inflammatories and muscle relaxers, provided with work release tomorrow. Patient states gratefulness with this plan. - Vital Signs Vital signs: Temp Pulse Resp BP Pulse Ox 98.6 F 115 H 14 129/73 H 97 04/03/18 20:19 04/03/18 20:19 04/03/18 20:19 04/03/18 20:19 04/03/18 20:19 Discharge - Discharge Clinical Impression: Muscle strain Lower back pain Qualifiers: Chronicity: acute Back pain laterality: bilateral Sciatica presence: without sciatica Qualified Code(s): M54.5 - Low back pain Condition: Stable Disposition: HOME, SELF-CARE Additional Instructions: Your evaluation is most consistent with muscle strain and spasm. You have been given initial treatment, continue treatment at home with prescribed medications, apply heat to the area, do gentle stretches, and rest. Avoid heavy lifting/twisting until symptoms resolve. Follow-up with primary care. Return for any concerning symptoms including developing numbness, severe pain, fever, incontinence, or any other concerning symptoms. Prescriptions: Methocarbamol [Robaxin 750 mg Tablet] 750 mg PO Q6 #20 tablet Naproxen 500 mg PO BID PRN #20 tablet PRN Reason: Forms: Return to Work
== END 2018-04-03 21:50 | disposition home or self-care (01) ==
LOC: ER 20:14
DX: M54.5 Low back pain (principal); M54.9 Dorsalgia, unspecified; J45.909 Unspecified asthma, uncomplicated
CPT/HCPCS: 99283; 96372; J3360

== ENCOUNTER 2018-07-28 18:07 | Emergency (ER) | payer SELFPAY ==
[2018-07-28] MEDS ORDERED: HYDROCODONE/ACETAMINOPHEN 5-325 MG TABLET PO ONE (20:29)
[2018-07-28] MEDS ORDERED: MECLIZINE HCL 25 MG TABLET PO ONE (20:29)
[2018-07-28] MEDS ORDERED: METOCLOPRAMIDE HCL 10 MG TABLET PO ONE (20:30)
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
[2018-07-28] MEDS ORDERED: METOCLOPRAMIDE HCL INJ/PF 10 MG/2 ML SDV IV ONE (21:02)
[2018-07-28] MEDS ORDERED: DIPHENHYDRAMINE HCL 50 MG/ML VIAL IV ONE (21:02)
--- NOTE | 2018-07-28 21:37 | RADIOLOGY REPORT (SQ) ---
EXAM DESCRIPTION: CT HEAD WITHOUT IV CONTRAST COMPLETED DATE/TME: 07/28/2018 20:29 CLINICAL HISTORY: 22 years, Male, dizzy, headache COMPARISON: None. TECHNIQUE: 204 Images stored on PACS. All CT scanners at this facility use dose modulation, iterative reconstruction, and/or weight based dosing when appropriate to reduce radiation dose to as low as reasonably achievable (ALARA). [facility]: Dose Right [facility]: CareDose [facility]: Dose Right [facility]: Teradose 4D [facility]: feedPack LIMITATIONS: None. FINDINGS: The globes are intact. Mucosal thickening of the maxillary sinuses and ethmoid air cells. No displaced or depressed skull fracture. No intra or extra-axial hemorrhage. CT is limited for evaluation of acute infarct. No CT evidence for large or territorial acute infarct. No mass, mass effect, or midline shift. IMPRESSION: Negative for acute intracranial abnormality. Mucosal thickening of the maxillary sinuses and ethmoid air cells. TECHNICAL DOCUMENTATION: Quality ID # [id number]: Final reports with documentation of one or more dose reduction techniques (e.g., Automated exposure control, adjustment of the mA and/or kV according to patient size, use of iterative reconstruction technique) copyright 2010 [employer]- All Rights Reserved
[2018-07-28] MEDS ORDERED: KETOROLAC TROMETHAMINE INJ/PF 30 MG/1 ML SDV IV ONE (22:38)
--- NOTE | 2018-07-28 22:39 | ER Document Report ---
ED General - General Chief Complaint: Headache Stated Complaint: HEADACHE Time Seen by Provider: 07/28/18 20:16 Primary Care Provider: JI BUSH DO [NO LOCAL MD] - 08/01/18 Mode of Arrival: Ambulatory Information source: Patient Notes: This is a 22-year-old man who presents to the emergency room with headache for the past 2 days. Patient states that the headache started after going on an amusement park ride. He denies any recent illnesses, fever, chills, cough. TRAVEL OUTSIDE OF THE [place] IN LAST 30 DAYS: No - HPI Onset: Yesterday Onset/Duration: Gradual Quality of pain: Dull Severity: Moderate Pain Level: 2 Associated symptoms: denies: Chest pain, Fever, Nausea, Vomiting, Shortness of breath Exacerbated by: Denies Relieved by: Denies Similar symptoms previously: No Recently seen / treated by doctor: No - Related Data Allergies/Adverse Reactions: promethazine HCl [From Phenergan] Allergy (Verified 04/20/17 18:51) Past Medical History - General Information source: Patient - Social History Smoking Status: Current Every Day Smoker Cigarette use (# per day): Yes - Half a pack per day Chew tobacco use (# tins/day): No Frequency of alcohol use: None Drug Abuse: None Lives with: Family Family History: Arthritis, CAD, COPD, CVA, DM, Hyperlipidemia, Hypertension, Malignancy, Thyroid Disfunction, Other - Gallbladder Disease Patient has suicidal ideation: No Patient has homicidal ideation: No - Past Medical History Cardiac Medical History: Reports: None Pulmonary Medical History: Reports: Hx Asthma EENT Medical History: Reports: None Neurological Medical History: Reports: None Endocrine Medical History: Reports: None Renal/ Medical History: Reports: None. Denies: Hx Peritoneal Dialysis Malignancy Medical History: Reports None GI Medical History: Reports: None Musculoskeletal Medical History: Reports None Skin Medical History: Reports None Psychiatric Medical History: Reports: Hx Attention Deficit Hyperactivity Disorder, Hx Bipolar Disorder Traumatic Medical History: Reports: None Infectious Medical History: Reports: None Past Surgical History: Reports: Hx Genitourinary Surgery - circumcsion at 10 years old, Hx Tonsillectomy - Immunizations Immunizations up to date: Yes Hx Diphtheria, Pertussis, Tetanus Vaccination: Yes Review of Systems - Review of Systems Constitutional: denies: Chills, Fever EENT: No symptoms reported Cardiovascular: No symptoms reported Respiratory: No symptoms reported Gastrointestinal: No symptoms reported Genitourinary: No symptoms reported Male Genitourinary: No symptoms reported Musculoskeletal: No symptoms reported Skin: No symptoms reported Hematologic/Lymphatic: No symptoms reported Neurological/Psychological: See HPI Physical Exam - Vital signs Vitals: Temp Pulse Resp BP Pulse Ox 98.0 F 69 18 113/67 98 07/28/18 18:38 07/28/18 18:38 07/28/18 18:38 07/28/18 18:38 07/28/18 18:38 Notes: Physical exam: GENERAL: Patient is alert and oriented x3 HEAD: Atraumatic, normocephalic. EYES: Pupils equal round and reactive to light, extraocular movements intact, sclera anicteric, conjunctiva are normal. ENT: TMs normal, nares patent, oropharynx clear without exudates. Moist mucous membranes. NECK: Normal range of motion, supple without obvious mass or JVD. LUNGS: Breath sounds clear to auscultation bilaterally and equal. No wheezes rales or rhonchi. HEART: Regular rate and rhythm without murmurs, rubs or gallops. ABDOMEN: Soft, normoactive bowel sounds. No tenderness to palpation. No guarding, no rebound. No masses appreciated. EXTREMITIES: Normal range of motion, no pitting or edema. No clubbing or cyanosis. NEUROLOGICAL: Cranial nerves II through XII grossly intact. [place] are intact. Normal speech, moving all extremities. Motor 5/5, sensory grossly intact, cerebellar (finger to nose) is good. Flexes are symmetrical. PSYCH: Normal mood, normal affect. SKIN: Warm, Dry, normal turgor, no rashes or lesions noted. Course - Vital Signs Vital signs: Temp Pulse Resp BP Pulse Ox 97.5 F 66 18 116/68 98 07/28/18 22:55 07/28/18 22:55 07/28/18 22:55 07/28/18 22:55 07/28/18 22:55 - Diagnostic Test Radiology reviewed: Image reviewed, Reports reviewed - T of the head shows no acute intracranial process Discharge - Discharge Clinical Impression: Headache Condition: Stable Disposition: HOME, SELF-CARE Additional Instructions: As we discussed the CT showed no evidence of bleeding. There was some incidental finding of some sinus congestion is not uncommon. I want you to take it easy over the next few days. Take the medicine as prescribed for pain. Zofran for nausea. Follow-up with a doctor on Wednesday for repeat evaluation. Return to the emergency room for worsening pain or nausea. Prescriptions: Ketorolac Tromethamine [Toradol 10 mg Tablet] 10 mg PO Q8HP PRN #7 tablet PRN Reason: Forms: Restricted Release Referrals: JI BUSH DO [NO LOCAL MD] - 08/01/18
[2018-07-28] MEDS ORDERED: ONDANSETRON ODT 4 MG TAB (6 TAB/ER DISP) PO PRN (22:45)
[2018-07-28 23:01] VITALS: BP 116/68
== END 2018-07-28 23:01 | disposition home or self-care (01) ==
LOC: ER 18:07
DX: R51 Headache (principal); F17.210 Nicotine dependence, cigarettes, uncomplicated
CPT/HCPCS: 99284; 96374; 96375; 70450; J1200; J1885; J2765

== ENCOUNTER 2018-10-09 00:25 | Emergency (ER) | payer SELFPAY ==
[2018-10-09 00:35] VITALS: BP 128/76
== END 2018-10-09 02:20 | disposition left against medical advice (07) ==
LOC: ER 00:25
DX: Z53.21 Procedure and treatment not carried out due to patient leaving prior to being seen by health care provider (principal)

== ENCOUNTER 2019-04-01 05:28 | Emergency (ER) | payer SELFPAY ==
[2019-04-01] MEDS ORDERED: BENZONATATE 100 MG CAPSULE PO ONE (07:09)
[2019-04-01] MEDS ORDERED: PREDNISONE 20 MG TABLET PO ONE (07:10)
--- NOTE | 2019-04-01 07:14 | ER Document Report ---
ED General - General Chief Complaint: Sore Throat Stated Complaint: FEVER,SORE THROAT,HEADACHE Time Seen by Provider: 04/01/19 06:36 Mode of Arrival: Ambulatory Information source: Patient Notes: This 23-year-old male patient comes emergency room complaining of sore throat that started on , 2 days ago. Later that day he started coughing. States she is felt warm but he does not know if he has a fever. He has had a little bit of nausea. He believes he got sick from a coworker who reportedly got sick from a grandchild. He did not get a flu shot this year. TRAVEL OUTSIDE OF THE [place] IN LAST 30 DAYS: No - Related Data Allergies/Adverse Reactions: promethazine HCl [From Phenergan] Allergy (Verified 04/20/17 18:51) Past Medical History - General Information source: Patient - Social History Smoking Status: Current Every Day Smoker Cigarette use (# per day): Yes - 1/5 PPD Chew tobacco use (# tins/day): No Smoking Education Provided: No Frequency of alcohol use: Occasional Occupation: [employer] Lives with: Friend Family History: Arthritis, CAD, COPD, CVA, DM, Hyperlipidemia, Hypertension, Malignancy, Thyroid Disfunction, Other - Gallbladder Disease Patient has suicidal ideation: No Patient has homicidal ideation: No Pulmonary Medical History: Reports: Hx Asthma Psychiatric Medical History: Reports: Hx Attention Deficit Hyperactivity Disorder, Hx Bipolar Disorder Past Surgical History: Reports: Hx Genitourinary Surgery - circumcsion at 10 years old, Hx Tonsillectomy - Tonsillectomy at 15 years old - Immunizations Immunizations up to date: Yes Hx Diphtheria, Pertussis, Tetanus Vaccination: Yes Review of Systems - Review of Systems Constitutional: See HPI - [place] warm, not sure about fever EENT: Nose congestion, Nose discharge, Throat pain Cardiovascular: No symptoms reported Respiratory: See HPI, Cough Gastrointestinal: Nausea Genitourinary: No symptoms reported Musculoskeletal: No symptoms reported Skin: No symptoms reported Hematologic/Lymphatic: No symptoms reported Neurological/Psychological: No symptoms reported Physical Exam - Vital signs Vitals: Temp Pulse Resp BP Pulse Ox 98.4 F 91 14 136/83 H 99 04/01/19 05:37 04/01/19 05:37 04/01/19 05:37 04/01/19 05:37 04/01/19 05:37 Interpretation: Normal - HEENT Head: Normocephalic, Atraumatic Eyes: Normal Pupils: PERRL Nasal: Other - Some nasal congestion Mucous membranes: Normal Pharynx: Erythema. No: Exudate, Uvular edema Neck: Normal - Respiratory Respiratory status: No respiratory distress Breath sounds: Nonproductive cough, Rhonchi - Cardiovascular Rhythm: Regular Heart sounds: Normal auscultation Murmur: No - Abdominal Inspection: Normal - Back Back: Normal - Extremities General upper extremity: Normal inspection General lower extremity: Normal inspection - Neurological Neuro grossly intact: Yes - Psychological Associated symptoms: Normal affect, Normal mood Course - Vital Signs Vital signs: Temp Pulse Resp BP Pulse Ox 98.4 F 91 14 136/83 H 99 04/01/19 05:37 04/01/19 05:37 04/01/19 05:37 04/01/19 05:37 04/01/19 05:37 - Laboratory Result Diagrams: 04/01/19 07:20 Laboratory results interpreted by me: 04/01/19 07:20 WBC 15.2 H Absolute Neuts (auto) 10.2 H Discharge - Discharge Clinical Impression: Viral upper respiratory tract infection with cough Condition: Stable Disposition: HOME, SELF-CARE Additional Instructions: Upper Respiratory Illness You have a viral infection of the respiratory passages -- a "cold." This common infection causes nasal congestion, drainage, and often sore throat and cough. It is caused by a virus and is highly contagious. The disease usually lasts a week or more, though the worst symptoms are usually over in 3 or 4 days. There is no "cure" for the viral infection -- it must run its course. If there is a complication, such as bacterial infection in the nose, sinuses, middle ear, or bronchial tubes, antibiotics may be required, but antibiotics won't affect the virus. If you smoke, you should STOP!! Drink plenty of fluids. A humidifier may help. An expectorant medication or decongestant may make you more comfortable. Use acetaminophen or ibuprofen for fever or aches. See the doctor if fever persists over two or three days, if there is any significant worsening of your symptoms, or if you simply fail to improve as expected. Take medication as prescribed for your cough. Try adding Delsym DM to help suppress your cough. Drink plenty of fluids and get plenty of rest. Take Tylenol and ibuprofen for pain as needed. Follow-up with a local medical doctor if not improving. RETURN TO THE EMERGENCY ROOM IF ANY NEW OR WORSENING SYMPTOMS. Prescriptions: Benzonatate [Tessalon Perles 100 mg Capsule] 100 mg PO ASDIR PRN #30 capsule PRN Reason:
[2019-04-01 07:42] LABS: ABSOLUTE BASOPHILS # (AUTO) 0.1 10^3/uL (0.0-0.2); ABSOLUTE EOSINOPHILS # (AUTO) 0.4 10^3/uL (0.0-0.6); ABSOLUTE LYMPHOCYTES (AUTO) 3.2 10^3/uL (0.5-4.7); ABSOLUTE MONOCYTES (AUTO) 1.3 10^3/uL (0.1-1.4); ABSOLUTE NEUT (AUTO) 10.2 10^3/uL (1.7-8.2); BASOPHILS % (AUTO) 0.4 % (0-2); EOSINOPHILS % (AUTO) 2.5 % (0-6); HEMATOCRIT 43.4 % (37.9-51.0); HEMOGLOBIN 14.9 g/dL (13.5-17.0); LYMPHOCYTES % (AUTO) 21.1 % (13-45); MEAN CORPUSCULAR HEMOGLOBIN 29.3 pg (27.0-33.4); MEAN CORPUSCULAR HGB CONC 34.5 g/dL (32.0-36.0); MEAN CORPUSCULAR VOLUME 85 fl (80-97); MONOCYTES % (AUTO) 8.9 % (3-13); PLATELET COUNT 255 10^3/uL (150-450); RED BLOOD COUNT 5.11 10^6/uL (4.35-5.55); RED CELL DISTRIBUTION WIDTH 12.3 % (11.5-14.0); SEGMENTED NEUTROPHILS % (AUTO) 67.1 % (42-78); TOTAL CELLS COUNTED % (AUTO) 100 %; WHITE BLOOD COUNT 15.2 10^3/uL (4.0-10.5)
[2019-04-01 08:32] VITALS: BP 127/80
== END 2019-04-01 08:27 | disposition home or self-care (01) ==
LOC: ER 05:28
DX: J06.9 Acute upper respiratory infection, unspecified (principal); R50.9 Fever, unspecified; R51 Headache; F17.210 Nicotine dependence, cigarettes, uncomplicated
CPT/HCPCS: 99283; 36415; 87070; 87880; 85025; J7512

== ENCOUNTER 2019-10-04 10:22 | Emergency (ER) | payer SELFPAY ==
[2019-10-04] MEDS ORDERED: TETRACAINE HCL 0.5% OPH SOLN 4 ML OS ONE (10:58)
--- NOTE | 2019-10-04 10:59 | ER Document Report ---
ED Medical Screen (RME) - General Chief Complaint: Eye Problem Stated Complaint: EYE IRRITATION Time Seen by Provider: 10/04/19 10:57 Mode of Arrival: Ambulatory Information source: Patient Notes: 23-year-old male presented to ED for increasing pain to the left upper lid. He states he felt like he had something in and the pain is increasing and getting more irritating. I do not see anything in the lid. He does have irritation to his eye. Patient is alert and oriented respirations regular nonlabored speaking in full sentences. I have greeted and performed a rapid initial assessment of this patient. A comprehensive ED assessment and evaluation of the patient, analysis of test results and completion of medical decision making process will be conducted by an additional ED providers. TRAVEL OUTSIDE OF THE [place] IN LAST 30 DAYS: No - Related Data Allergies/Adverse Reactions: promethazine HCl [From Phenergan] Adverse Reaction (Intermediate, Verified 10/04/19 10:57) Sleepy Past Medical History Pulmonary Medical History: Reports: Hx Asthma Psychiatric Medical History: Reports: Hx Attention Deficit Hyperactivity Disorder, Hx Bipolar Disorder Past Surgical History: Reports: Hx Genitourinary Surgery - circumcsion at 10 years old, Hx Tonsillectomy - Tonsillectomy at 15 years old - Immunizations Immunizations up to date: Yes Hx Diphtheria, Pertussis, Tetanus Vaccination: Yes Physical Exam - Vital signs Vitals: Temp Pulse Resp BP Pulse Ox 98 F 72 18 129/80 H 99 10/04/19 10:22 10/04/19 10:22 10/04/19 10:10/04/19 10:22 10/04/19 10:22 Course - Vital Signs Vital signs: Temp Pulse Resp BP Pulse Ox 98 F 72 18 129/80 H 99 10/04/19 10:22 10/04/19 10:22 10/04/19 10:22 10/04/19 10:22 10/04/19 10:22
--- NOTE | 2019-10-04 13:54 | ER Document Report ---
ED Eye Complaint - General Chief Complaint: Redness of Eye Stated Complaint: EYE IRRITATION Time Seen by Provider: 10/04/19 10:57 Primary Care Provider: ANA GUDINO MD [ACTIVE STAFF] - Follow up tomorrow Mode of Arrival: Ambulatory Notes: 23-year-old male presents today for left eye redness x2 days. Patient denies any trauma to the left eye. States not really a pain but more of an irritation when he shuts his side. Feels like there is a foreign body stuck under his eyelid. He denies any vision changes or blurriness. Does not wear contacts. He denies pain with eye movement. No light sensitivity. He reports watery discharge. Denies any purulent drainage. Denies any fevers, chills, shortness of breath, abdominal pain or additional symptoms. TRAVEL OUTSIDE OF THE [place] IN LAST 30 DAYS: No - Related Data Allergies/Adverse Reactions: promethazine HCl [From Phenergan] Adverse Reaction (Intermediate, Verified 10/04/19 10:57) Sleepy Home Medications: denies Past Medical History - General Information source: Patient - Social History Smoking Status: Current Every Day Smoker Chew tobacco use (# tins/day): No Frequency of alcohol use: Occasional Drug Abuse: None Family History: Arthritis, CAD, COPD, CVA, DM, Hyperlipidemia, Hypertension, Malignancy, Thyroid Disfunction, Other - Gallbladder Disease Patient has homicidal ideation: No Pulmonary Medical History: Reports: Hx Asthma Psychiatric Medical History: Reports: Hx Attention Deficit Hyperactivity Disorder, Hx Bipolar Disorder Past Surgical History: Reports: Hx Genitourinary Surgery - circumcsion at 10 years old, Hx Tonsillectomy - Tonsillectomy at 15 years old - Immunizations Immunizations up to date: Yes Hx Diphtheria, Pertussis, Tetanus Vaccination: Yes Review of Systems - Review of Systems Constitutional: No symptoms reported EENT: See HPI Cardiovascular: No symptoms reported Respiratory: No symptoms reported Gastrointestinal: No symptoms reported Genitourinary: No symptoms reported Physical Exam - Vital signs Vitals: Temp Pulse Resp BP Pulse Ox 98 F 72 18 129/80 H 99 10/04/19 10:22 10/04/19 10:22 10/04/19 10:22 10/04/19 10:22 10/04/19 10:22 - Notes Notes: Adult General: GENERAL: Alert, interacts well. No acute distress HEAD: Normocephalic, atraumatic EYES: Pupils equal, round and reactive to light. Extraocular movements intact and not restricted. No limbic injection. No ulcerations. No pain with eye movement. No surrounding erythema. No tenderness around eye orbit ENT: Oral mucosa moist, tongue midline. Oropharynx unremarkable. Airway patent. Nares patent. NECK: Full range of motion. Supple. Trachea midline. LUNGS: Clear to auscultation bilaterally, no wheezes, rales, or rhonchi. No respiratory distress. Nontender chest wall. HEART: Regular rate and rhythm. No murmurs, rubs or gallops. ABDOMEN: Soft, nontender. Nondistended. Bowel sounds present in all 4 quadrants. GENITOURINARY: Deferred EXTREMITIES: Moves all 4 extremities spontaneously. No cyanosis. BACK: Moves all extremities with full range of motion. NEUROLOGICAL: Alert and oriented x3. Normal speech. Strength 5/ 5 in all extremities. PSYCH: Normal affect, normal mood. SKIN: Warm, dry, normal turgor. No rashes or lesions noted. - HEENT Visual acuity- Right eye: 20/25 Visual acuity- Left eye: 20/30 Visual acuity- Both eyes: 20/25 Corrective lenses worn: No Course - Re-evaluation Re-evalutation: 10/04/19 20:23 Provided patient tetracaine to his left eye. Fluorescein testing was then performed on patient. Lama lamp exam no ulcerations or corneal abrasions were noted. Also no foreign bodies were noted. Slit lamp exam showed no foreign bodies either. Eye lid inversion was unable to be tolerated by patient. No blurry vision. As patient has full ocular eye movement, no limbic injecting, denies eye pain reports is more of an irritation will treat as a conjunctivitis. Patient will follow-up with ophthalmology tomorrow. Patient will be prescribed antibiotics and pain medication. Patient will follow up with the ER if he has worsening symptoms or development of any symptoms. Is in agreement with plan and verbalizes understanding of instructions. - Vital Signs Vital signs: Temp Pulse Resp BP Pulse Ox 98.0 F 69 18 110/78 99 10/04/19 13:59 10/04/19 13:59 10/04/19 13:59 10/04/19 13:59 10/04/19 13:59 Discharge - Discharge Clinical Impression: Red eye Condition: Stable Disposition: HOME, SELF-CARE Instructions: Eyedrop Use (OM) Additional Instructions: You are being treated for red eye. No foreign bodies were seen in your eye at this time. Will prescribe antibiotics for your eye. Recommend follow-up with ophthalmology tomorrow . Prescriptions: Ketorolac Tromethamine 5 ml OS TID PRN #1 bottle PRN Reason: Polymyxin B Sulf/Trimethoprim [Polytrim Eye Drops] 1 drop OS QID 7 Days drops Forms: Return to Work Referrals: ANA GUDINO MD [ACTIVE STAFF] - Follow up tomorrow
[2019-10-04 13:59] VITALS: BP 110/78
== END 2019-10-04 14:02 | disposition home or self-care (01) ==
LOC: ER 10:22
DX: H57.89 Other specified disorders of eye and adnexa (principal); F17.200 Nicotine dependence, unspecified, uncomplicated; J45.909 Unspecified asthma, uncomplicated
CPT/HCPCS: 99282